=== PATIENT | female | born 1975 | race Two or more races ===

== ENCOUNTER 2024-02-19 14:30 | Emergency (ER) | payer BC, SELFPAY ==
[2024-02-19 14:45] VITALS: BP 129/85; PULSE 75; RESP 18; TEMP 36.9; O2SAT 97; BMI 34.2
--- NOTE | 2024-02-19 15:31 | EDNOTE_ITS ---
ED Ear RME/HPI General Chief complaint: Ear Stated complaint: Q-TIP SWAB STUCK RIGHT EAR Time Seen by Provider: 02/19/24 14:35 Arrival date/time: 02/19/24 14:30 48-year-old female presents emergency department complaints of Q-tip stuck in the right ear ongoing for more than a week patient reports she tried to remove it without success patient reports pain to the right ear canal Limitations: no limitations Related Data Previous Rx's ?Medication ?Instructions ?Recorded amoxicillin 875 mg-potassium 1 tab PO BID 7 days #14 tabs 02/19/24 clavulanate 125 mg tablet hydrocodone 5 mg-acetaminophen 325 1 tab PO BID PRN pain #8 tabs 02/19/24 mg tablet ibuprofen 800 mg tablet 800 mg PO TID PRN pain #30 tabs 02/19/24 ofloxacin 0.3 % ear drops 10 drop otic (ear) QDAY 10 days 02/19/24 #10 mL Allergies Allergy/AdvReac Type Severity Reaction Status Date / Time No Known Allergies Allergy Verified 04/04/23 00:01 Review of Systems Review of Systems Systems Reviewed: All systems reviewed, normal except as documented Constitutional Constitutional: Reports system reviewed and no additional complaints, except as documented, Denies fever(s) and Denies headache(s) Eyes Eyes: Reports system reviewed and no additional complaints, except as documented and Denies blurry vision ENT Ears, Nose, Mouth, and Throat: Reports system reviewed and no additional complaints, except as documented, Denies headache(s), Denies nasal congestion, Denies nasal discharge and Reports other (Foreign body right ear) Cardiovascular Cardiovascular: Reports system reviewed and no additional complaints, except as documented, Denies chest pain and Denies dyspnea Respiratory Respiratory: Reports system reviewed and no additional complaints, except as documented, Denies chest congestion, Denies cough and Denies dyspnea Gastrointestinal Gastrointestinal: Reports system reviewed and no additional complaints, except as documented and Denies abdominal pain Integumentary/Breasts Skin/Breast: Reports system reviewed and no additional complaints, except as documented and Denies rash Neurologic Neurologic: Reports system reviewed and no additional complaints, except as documented, Reports as per HPI and Denies headache(s) Past Medical History Social History SMOKING STATUS: Never smoker ED Exam General Limitations: Present no limitations General appearance: Present alert and in no apparent distress Head Head exam: Present atraumatic Eye Eye exam: Present normal appearance, PERRL and EOMI ENT ENT exam: Present mucous membranes moist and other (Q-tip right ear canal) Neck Neck exam: Present normal inspection, full ROM and trachea midline Chest Chest inspection: Present normal inspection and symmetric chest wall rise Respiratory Respiratory exam: Present normal lung sounds bilaterally Cardiovascular Cardiovascular exam: Present regular rate, normal rhythm and normal heart sounds Abdominal Exam Abdominal exam: Present soft and normal bowel sounds Extremities Exam Extremities exam: Present normal inspection and full ROM Back Exam Back exam: Present normal inspection and full ROM Neurological Exam Neurological exam: Present alert, oriented X3 and CN II-XII intact Psychiatric Psychiatric exam: Present normal affect and normal mood Skin Skin exam: Present warm, dry, intact and normal color Course Quality Measures none Vital Signs Vital signs: Vital Signs Temperature 98.4 F 02/19/24 14:45 Pulse Rate 75 02/19/24 14:45 Respiratory Rate 18 02/19/24 14:45 Blood Pressure 129/85 H 02/19/24 14:45 Pulse Oximetry (%) 97 02/19/24 14:45 Oxygen Delivery Method Room Air 02/19/24 14:45 O2 saturation 97% room air within normal limits Procedures -ED FB Removal Ear Location: ear canal (R) Foreign Body Suspected: other (Q-tip) TM intact pre-procedure: yes If Insect Suspected: ear canal instilled with other Foreign Body Removed: no Foreign Body Removal Technique: instrumentation Tympanic Membrane Intact Post Procedure: Yes Patient Tolerated Procedure: well Complications: pain Ear Patient data External records reviewed:: [facility] previous records Clinical information provided by:: patient Social determinants that could affect healthcare access:: none Patient has the following chronic illnesses:: See history How is presenting disease/condition affected by chronic disease/condition?: une ffected by Evaluation data The following diagnostics were reviewed and interpreted by me:: other (specify) (N/A) Lab and/or radiology exams considered but not ordered:: Consider not ordered Interpretation Summary: N/A Medications / Prescriptions Medications or Prescriptions considered but not ordered:: Rx given Medication administrations:: Rx given Consultations Consultation(s) initiated? (list below): No Diagnosis Ear Differential Diagnosis: otitis externa, otitis media and foreign body in ear Most likely diagnosis given after review of the tests above:: Foreign body right ear Admission Indicated Admission indicated?: not indicated Admission Request Was there a request for admission?: No Disposition Plan Disposition Plan: Discharge Discharge Attestation Discharge Attestation: The patient and all family members were given an opportunity to ask questions and understood the discharge instructions. Discharge instructions specifically effects, indications for sooner follow up or return to the emergency department, and the expected course of current diagnosis. Patient condition: Stable Medical Decision Making MDM Narrative MDM Narrative: 48-year-old female presents emergency department complaints of Q-tip stuck in the right ear ongoing for more than a week patient reports she tried to remove it without success patient reports pain to the right ear canal On exam patient does have a Q-tip in the right ear appears to be quite deeply embedded Irrigation was attempted without success Patient instructed to follow-up with primary care doctor and or get referral to ENT specialist for worsening symptoms return immediately Differential Diagnosis Differential Diagnosis: Otitis media, otitis externa, right ear foreign body Medical Records Medical records reviewed: Yes I reviewed the patient's medical records. Discharge Plan Plan Patient Disposition: HOME (Self Care) Disposition Comment: Stable Prescriptions/Referrals Prescriptions/Med Rec: New ibuprofen 800 mg tablet 800 mg PO TID PRN (Reason: pain) Qty: 30 0RF hydrocodone-acetaminophen 5-325 mg tablet 1 tab PO BID MDD 10 PRN (Reason: pain) Qty: 8 0RF ofloxacin 0.3 % drops 10 drop otic (ear) QDAY 10 Days Qty: 10 0RF amoxicillin-pot clavulanate 875-125 mg tablet 1 tab PO BID 7 Days Qty: 14 0RF Referrals: Linda Streeter FNP [Primary Care Provider] - 02/20/24 Problem List Clinical Impression: Acute foreign body of right ear Patient/Caregiver Discharge Instructions Education Materials: Anatomy of the Ear Additional Instructions: Please follow-up your primary care doctor in order get a referral to specialist for worsening symptoms return immediately Print Language: [place] Stand Alone Forms: Phylicia Award Info., Patient Portal Info Letter ALLAN/TAMIKO Supervising Physician ALLAN/TAMIKO Supervising Physician: Dr. Dorsey
== END 2024-02-19 16:44 | disposition home or self-care (01) ==
PROVIDERS: Emergency Provider Emergency Medicine; PCP Registered Nurse
DX: T16.1XXA Foreign body in right ear, initial encounter (principal)
CPT/HCPCS: 69200; 99283

== ENCOUNTER → 2024-03-02 | Outpatient (CLI) | payer BC, SELFPAY ==
--- NOTE | 2024-03-02 14:00 | XR_ITS ---
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
== END | disposition home or self-care (01) ==
PROVIDERS: PCP Registered Nurse; Referring Provider Registered Nurse; Visit Provider Registered Nurse
DX: R22.0 Localized swelling, mass and lump, head (principal)
CPT/HCPCS: 76536